=== PATIENT | male | born 1965 | race Caucasian/White ===

== ENCOUNTER 2019-10-10 07:59 | Outpatient (CLI) | payer OTHER, SELFPAY ==
--- NOTE | ~2019-10-10 | CT_ITS ---
EXAMINATION: CT abdomen pelvis w con DATE: 10/10/2019 08:45 INDICATION: Prostate cancer TECHNIQUE: Computed tomography (CT) of the abdomen and pelvis was performed with 100 mL Omnipaque-350 intravenous contrast. Automated exposure control and iterative reconstruction technique were employe d. The dose-length product was 917.29 mGy-cm. COMPARISON: None FINDINGS: Dependent atelectasis in the bilateral lower lobes. Heart size is normal. No pericardial or pleural e ffusion. 1.3 cm left hepatic cyst. Liver, gallbladder, spleen, pancreas and bilateral adrenal glands are normal. Bilateral nonobstructing renal stones, the largest stone/conglomeration of stones measuri ng 8 mm in maximal length and an upper pole calyx of the left kidney. Couple relatively hypodense les ions in the left kidney, the largest measuring 1.5 cm with slightly higher than simple fluid attenuat ion which remains indeterminate but most likely a proteinaceous/hemorrhagic cyst. Bowels including th e appendix are normal. Bladder is normal. Prostatomegaly. No free intraperitoneal gas or fluid. No pa thologically enlarged abdominal or pelvic lymphadenopathy. Mild scattered degenerative skeletal summers es. There are few tiny dense sclerotic bone islands at the bilateral femoral heads. No suspicious lyt ic or blastic bone lesions identified. IMPRESSION: 1. Prostatomegaly in patient with reported prostate cancer. No evident metastatic disease. 2. Bilateral nonobstructing nephrolithiasis. 3. Indeterminate 1.5 cm relatively hypodense lesion at the left kidney with slightly higher than simp le fluid attenuation statistically most likely to represent a proteinaceous/hemorrhagic cyst. Conside r follow-up pre and postcontrast MRI or CT. Reviewed, dictated and finalized at location A. IMPRESSION: 1. Prostatomegaly in patient with reported prostate cancer. No evident metastat ic disease. 2. Bilateral nonobstructing nephrolithiasis. 3. Indeterminate 1.5 cm relatively hypodense lesion at the left kidney with sli ghtly higher than simple fluid attenuation statistically most likely to represe nt a proteinaceous/hemorrhagic cyst. Consider follow-up pre and postcontrast MR I or CT.
--- NOTE | ~2019-10-10 | US_ITS ---
EXAMINATION: US scrotum doppler DATE: 10/10/2019 09:00 INDICATION: Orchalgia TECHNIQUE: Testicular sonogram utilizing grayscale and Doppler COMPARISON: None. FINDINGS: The right testis measures 4.2 x 2.3 x 3.6 cm. The left testis measures 4.3 x 2.4 x 3.1 cm. Symmetric normal grayscale appearance to both testes. There is normal vascular flow to both testes. The right e pididymis is normal with normal vascular flow. The left epididymis is normal with normal vascular adriana w. There is no varicocele or hydrocele. IMPRESSION: 1. Normal scrotal ultrasound. Reviewed, dictated and finalized at location A.
[2019-10-10 08:28] LABS: Estimated Glomerular Filt Rate > 60
== END 2019-10-10 08:00 | disposition home or self-care (01) ==
LOC: ANHIMG 08:02
PROVIDERS: PCP Family Medicine; Visit Provider Urology
DX: C61 Malignant neoplasm of prostate (principal); N50.819 Testicular pain, unspecified; N40.0 Benign prostatic hyperplasia without lower urinary tract symptoms; N20.0 Calculus of kidney
CPT/HCPCS: 36415; 74177; 76870; 93976; Q9967

== ENCOUNTER 2019-10-16 11:48 | Outpatient (CLI) | payer OTHER, SELFPAY ==
--- NOTE | 2019-10-16 12:36 | ECG_ITS ---
Measurements Intervals [place] Rate: 69 P: 16 WA: 173 QRS: -27 QRSD: 90 T: -8 QT: 356 QTc: 383 Interpretive Statements SINUS RHYTHM DELAYED PRECORDIAL R/S TRANSITION BORDERLINE T WAVE ABNORMALITY- INFERIOR LEADS BORDERLINE ECG Electronically Signed On 10-16-2019 13:17:52 CDT by Brennan Mosher D.O.
[2019-10-16 12:50] LABS: Basophils Absolute Auto 0.1 K/mm3 (0.0-0.1); Basophils Percent Auto 0.8 % (0.2-1.2); Eosinophils Absolute Auto 0.2 K/mm3 (0-0.3); Eosinophils Percent Auto 3.7 % (0-4.4); Hematocrit 46.4 % (42.0-52.0); Hemoglobin 16.2 g/dL (14.0-18.0); Immature Granulocyte Absolute 0.03 K/mm3 (0.00-0.031); Immature Granulocyte Percent A 0.5 % (0-0.5); Mean Corpuscular HGB Conc 34.9 g/dl (32-36); Mean Corpuscular Hemoglobin 32.3 pg (26-34); Mean Corpuscular Volume 92.6 fl (80-100); Mean Platelet Volume 10.4 fl (7.4-10.4); Monocytes Absolute Auto 0.5 K/mm3 (0.1-0.6); Monocytes Percent Auto 7.9 % (2.6-8.5); Neutrophils Absolute Auto 3.8 K/mm3 (1.3-6.7); Neutrophils Percent Auto 59.1 % (45.5-73.1); Platelet Count Result 185 k/mm3 (150-375); Red Blood Count 5.01 M/mm3 (4.6-6.20); White Blood Count 6.4 K/mm3 (4.5-10.0)
[2019-10-16 12:59] LABS: INR 1.2; Prothrombin Time 14.6 Seconds (11.1-14.7)
[2019-10-16 13:00] LABS: Partial Thromboplastin Time 29.7 SECONDS (22.3-36.8)
[2019-10-16 13:02] LABS: Alanine Aminotransferase 58 U/L (4-50); Albumin Level 4.4 g/dL (3.5-5.1); Alkaline Phosphatase 59 U/L (38-126); Anion Gap 7 mmol/L (8-16); Aspartate Amino Transferase 35 U/L (17-59); Bilirubin,Total 0.7 mg/dL (0.2-1.3); Blood Urea Nitrogen 11 mg/dL (9-20); Calcium 8.9 mg/dL (8.4-10.2); Carbon Dioxide 28 mmol/L (22-30); Chloride 103 mmol/L (98-107); Estimated Glomerular Filt Rate > 60; Glucose 125 mg/dL (75-110); Potassium 3.8 mmol/L (3.4-5.0); Sodium 138 mmol/L (137-145)
== END 2019-10-16 11:49 | disposition home or self-care (01) ==
PROVIDERS: PCP Family Medicine; Visit Provider Urology
DX: C61 Malignant neoplasm of prostate (principal); I10 Essential (primary) hypertension; R94.31 Abnormal electrocardiogram [ECG] [EKG]
CPT/HCPCS: 36415; 80053; 85025; 85610; 85730; 87086; 93005

== ENCOUNTER 2019-10-25 01:45 | Outpatient (CLI) | payer OTHER, SELFPAY ==
[2019-10-25 19:29] LABS: SARS-CoV-2 RNA PCR Negative
== END 2019-10-25 01:46 | disposition home or self-care (01) ==
LOC: ANHCOVIDDT 01:45
PROVIDERS: PCP Family Medicine; Visit Provider Urology
DX: Z01.812 Encounter for preprocedural laboratory examination (principal); Z11.59 Encounter for screening for other viral diseases
CPT/HCPCS: 87635; C9803; U0003

== ENCOUNTER 2019-10-29 15:46 | Observation (INO) | payer OTHER, SELFPAY ==
[2019-10-16 12:32] VITALS: BP 147/93; PULSE 82; RESP 16; TEMP 37; O2SAT 98; BMI 30.4
--- NOTE | 2019-10-27 09:09 | WPDANESEPP ---
Anes - Eval Pre Procedure Procedure: Operation Date: 10/28/19 07:30 Proposed Procedures p Robotic Assisted Nerve Sparing Prostatectomy - Ketan Christensen MD Date/Time: 10/27/19 09:09 Pre Op Diagnosis: prostate CA Patient Data Age: 54 Gender: M Height: 1.85 m Weight: 104.8 kg Last Vital Signs Temp 37.0 C 10/16/19 12:32 Pulse 82 10/16/19 12:32 Resp 16 10/16/19 12:32 BP 147/93 H 10/16/19 12:32 Pulse Ox 98 10/16/19 12:32 Allergies Allergy/AdvReac Type Severity Reaction Status Date / Time No Known Allergies Allergy Unverified 10/16/19 11:55 Home Medications Medication Instructions Recorded Confirmed Type aspirin 325 mg tablet 325 mg PO DAILY 05/08/19 10/16/19 History famotidine 10 mg tablet 10 mg PO DAILY 05/08/19 10/16/19 History fluticasone propionate 50 1 spray NASAL PRN PRN 05/08/19 10/16/19 History mcg/actuation nasal spray,suspension loratadine 10 mg tablet 10 mg PO DAILY PRN 05/08/19 10/16/19 History multivitamin,wv-ubfn-[id number] 1 tablet PO DAILY 05/08/19 10/16/19 History amlodipine 10 mg tablet 10 mg PO DAILY #30 tablet 10/17/19 Rx Patient hx anesthesia problems: none Family hx anesthesia problems: none PMFSH Past Medical History Medical History Actinic keratosis Basal cell carcinoma Colon cancer screening Elevated PSA, less than 10 ng/ml Encounter for prostate cancer screening Encounter for wellness examination in adult Essential (primary) hypertension GERD (gastroesophageal reflux disease) GERD (gastroesophageal reflux disease) Hypertension Prostate cancer Seasonal allergic rhinitis Ureteral stone Surgical History Surgical History H/O vasectomy (~2014) H/O wisdom tooth extraction (~1979) History of excision of pilonidal cyst (~1987) Family History Family History Mother Ovarian cancer Father Coronary artery disease Osteoarthritis Sibling Hypertension Social History Social History Smoking status: Never smoker Alcohol intake: never Substance use: never Substance use type: does not use Exam Day of Procedure 10/27/19 09:09
[2019-10-28] VITALS (15 sets, daily range): BP systolic 101–168; BP diastolic 68–87; PULSE 81–101; RESP 11–24; TEMP 36.3–36.8; O2SAT 95–100
[2019-10-28] MEDS: LACTATED RINGERS 1,000 ML 30 ML IV CONT ×2 (06:45→12:55)
--- NOTE | 2019-10-28 07:00 | WPDHPUPDATE1 ---
History and Physical Update Update Date/Time: 10/28/19 07:00 History and Physical has been reviewed, including an updated exam of the patient. There are NO changes in the patient's condition. Risks, benefits, and alternatives have been discussed and questions answered. Patient agrees to proceed with procedure.
--- NOTE | 2019-10-28 07:01 | WPDANESEPPF ---
Anes - Initial Pre Proc Eval Procedure: Operation Date: 10/28/19 07:30 Proposed Procedures p Robotic Assisted Nerve Sparing Prostatectomy - Ketan Christensen MD Date/Time: 10/28/19 07:01 Surgeon: Ketan Christensen MD Pre Op Diagnosis: prostate CA Patient Data Age: 54 Gender: M Height: 6 ft 1 in Weight: 99.3 kg Last Vital Signs Temp 36.7 C 10/28/19 06:51 Pulse 81 10/28/19 06:51 Resp 16 10/28/19 06:51 BP 131/79 10/28/19 06:51 Pulse Ox 98 10/28/19 06:51 Allergies Allergy/AdvReac Type Severity Reaction Status Date / Time No Known Allergies Allergy Verified 10/28/19 06:13 Home Medications Medication Instructions Recorded Confirmed Type aspirin 325 mg tablet 325 mg PO DAILY 05/08/19 10/28/19 History famotidine 10 mg tablet 10 mg PO DAILY 05/08/19 10/28/19 History fluticasone propionate 50 1 spray NASAL PRN PRN 05/08/19 10/28/19 History mcg/actuation nasal spray,suspension loratadine 10 mg tablet 10 mg PO DAILY PRN 05/08/19 10/28/19 History multivitamin,ca-nxgk-iiqgljxk 1 tablet PO DAILY 05/08/19 10/28/19 History amlodipine 10 mg tablet 10 mg PO DAILY #30 tablet 10/17/19 10/28/19 Rx Patient hx anesthesia problems: none Family hx anesthesia problems: none PMFSH Past Medical History Medical History Actinic keratosis Basal cell carcinoma Colon cancer screening Elevated PSA, less than 10 ng/ml Encounter for prostate cancer screening Encounter for wellness examination in adult Essential (primary) hypertension GERD (gastroesophageal reflux disease) GERD (gastroesophageal reflux disease) Hypertension Prostate cancer Seasonal allergic rhinitis Ureteral stone Surgical History Surgical History H/O vasectomy (~2014) H/O wisdom tooth extraction (~1979) History of excision of pilonidal cyst (~1987) Family History Family History Mother Ovarian cancer Father Coronary artery disease Osteoarthritis Sibling Hypertension Social History Social History Smoking status: Never smoker Alcohol intake: never Substance use: never Substance use type: does not use Living arrangements: with family Anes - Eval Final PreProcedure Day of Procedure 10/28/19 07:01 Patient weight: normal Heart: regular rate and rhythm Lungs: clear to auscultation Airway: Mallampati scale class II Neurological: alert and oriented Last oral intake: >/= 8 hours ASA classification: II Emergent: no Anesthetic plan: proceed Anesthesia type and monitoring: general ETT and standard monitoring Informed Consent: The patient's anesthetic plan and its attendant risks and benefits were discussed with the patient/family/POA. Questions were solicited and answers provided to the satisfaction of the patient/family/POA.
[2019-10-28] MEDS: ceFAZolin 2 GM/D5W 50 ML 2 GM/50 ML BAG IVPB (07:23)
[2019-10-28] MEDS: ceFAZolin SODIUM 1 GM VIAL IV PUSH (11:26)
--- NOTE | 2019-10-28 12:37 | P.OP_ITS ---
Procedure Note - Detailed Date of procedure: 10/28/19 Pre-op diagnosis: prostate CA Post-op diagnosis: same Procedure performed: Robotic assisted nerve-sparing prostatectomy with bilateral pelvic lymphadenectomy Description of procedure: patient is taken the operative suite and correctly identified. Once anesthesia was obtained he was placed a low lying dorsal lithotomy position and prepped and draped usual sterile fashion. Eighteen [place] Akhtar was placed with 15 cc in the balloon. a supraumbilical incision was made and carried down to the rectus fascia. Veress needle was inserted in the abdomen was insufflated to 15 mmHg pressure. The camera port trocar was placed under direct vision. Working ports were then placed in the appropriate locations under direct vision. Patient was then placed in steep Trendelenburg position. The robot was then attached to the instruments. A posterior approach was then performed by incising the peritoneum posteriorly. Seminal vesicles were dissected out in their entirety. The vas was transected. Space between the prostate and rectum was then developed. Bladder was taken down in the standard fashion. Space of Retzius was developed bilaterally. Puboprostatic ligaments were transected. The superficial vein was fulgurated. Dorsal venous complex was isolated with an 0 Vicryl secured to the pubic bone. Bladder neck was then opened in a bladder neck sparing procedure was performed. Posterior bladder neck was also transected. The space that was developed previously was entered and the seminal vesicles and vas were visualized. Bilateral nerve-sparing was performed the standard fashion. Pedicles were isolated and hemoclipped. Prostate was elevated off the rectum without difficulty. Dorsal venous complex was then transected. The urethra was also transected. Bilateral pelvic lymphadenectomies were then performed with the borders being the Nikolas's ligament distally bifurcation of vessel proximally external iliac vein and obturator nerve. The right packet had a clip placed on it for identification. Surgicel was then placed in the obturator fossa as as well as over the nerve bundles. We then reapproximated the posterior shelf using a Jose stitch. The urethral stump was then anastomosed to the bladder neck using the V lock suture in a running fashion. There was good approximation of mucosa to mucosa. It was water tight. Sixteen [place] Akhtar was then placed with 10 cc in the balloon. The bladder was filled to 200 cc without any evidence of extravasation. Pressure in the abdomen was then taken down to 6 mmHg pressure. There was just a slight ooze at the dorsal venous complex area. We then over sewed this area can using V lock suture. All lap, needle count sponge counts were correct. The specimen as well as the lymph node packets were placed in the Endo-Catch bag. This was then brought out through the midline incision. Rectus fascia was closed using 0 Vicryl in a running fashion. Subcuticular stitches were then placed. We anesthetized the port sites using 1% lidocaine. Patient tolerated procedure well without complications and was taken recovery room stable condition. Anesthesia: GETA Surgeon: Ketan Christnesen MD Estimated blood loss (mL): 200 Drains: Yes Packing: No Pathology: yes Complications: No immediate complications Condition: stable Disposition: PACU
[2019-10-28] MEDS: HYOSCYAMINE SULFATE 0.125 MG TABLET PO (13:40)
[2019-10-28] MEDS: KETOROLAC 30 MG/ML VIAL (*BKC) IV PUSH ×2 (15:39→21:42)
[2019-10-28] MEDS: LACTATED RINGERS 1,000 ML 125 ML IV CONT ×2 (15:40→23:37)
[2019-10-28] MEDS: DOCUSATE SODIUM 100 MG CAPSULE PO (17:18)
[2019-10-29 00:59] VITALS: BP 105/66; PULSE 75; RESP 16; TEMP 36.3; O2SAT 96
[2019-10-29] MEDS: KETOROLAC 30 MG/ML VIAL (*BKC) IV PUSH (04:54)
[2019-10-29 04:59] VITALS: BP 117/67; PULSE 84; RESP 16; TEMP 36.7; O2SAT 96
[2019-10-29 05:45] LABS: Hematocrit 36.7 % (42.0-52.0)
[2019-10-29 06:07] LABS: Anion Gap 6 mmol/L (8-16); Blood Urea Nitrogen 13 mg/dL (9-20); Calcium 8.2 mg/dL (8.4-10.2); Carbon Dioxide 25 mmol/L (22-30); Chloride 105 mmol/L (98-107); Estimated CRCL calculation 115 ml/min; Estimated Glomerular Filt Rate > 60; Glucose 113 mg/dL (75-110); Potassium 3.8 mmol/L (3.4-5.0); Sodium 136 mmol/L (137-145)
[2019-10-29] MEDS: LACTATED RINGERS 1,000 ML 125 ML IV CONT (07:28)
[2019-10-29] MEDS: HYOSCYAMINE SULFATE 0.125 MG TABLET SUBLINGUAL (07:29)
--- NOTE | 2019-10-29 08:00 | WPDUROPN2 ---
Progress Note: A&P Assessment and Plan (1) Prostate cancer: Code(s): C61 - Malignant neoplasm of prostate Status: Acute Assessment and Plan: postop day 1. Robotic assisted nerve-sparing prostatectomy bilateral pelvic lymphadenectomy. - Increase ambulation - monitor CHARLIE output this morning. - possible discharge home later today. - Hold Toradol, start Tylenol as needed, Hep-Lock IV, remove Ricardo hose. Subjective Subjective Date/Time Seen: 10/29/19 08:00 Post Op day: 1 (Robotic assisted nerve-sparing prostatectomy with bilateral pelvic lymphadenectomy) Principal diagnosis: adenocarcinoma of prostate Interval history: Doing well overall. Has some discomfort from the CHARLIE site drained. Hemodynamically stable overnight Review of Systems Review of Systems: All systems reviewed & are unremarkable except as noted in HPI and below Exam Const: General: comfortable Eyes: General: appearance normal, both eyes and all related structures Resp: Effort & Inspection: normal respiratory effort GI: Inspection: non-distended Urinary Catheter: Urinary Catheter: patent and draining and urine clear Skin: General skin exam: normal color Neuro: Speech: normal speech Objective Data Vital Signs Vital Signs: Vital Signs - 24 hr 10/28/19 12:55 10/28/19 13:10 10/28/19 13:25 Temperature 36.8 C Pulse Rate 95 84 82 Respiratory Rate 15 11 L 24 H Blood Pressure 101/86 116/75 122/81 Pulse Oximetry 99 100 95 10/28/19 13:40 10/28/19 13:55 10/28/19 14:10 Temperature Pulse Rate 91 96 95 Respiratory Rate 13 16 20 Blood Pressure 124/79 122/80 125/80 Pulse Oximetry 96 96 100 10/28/19 14:25 10/28/19 14:40 10/28/19 14:55 Temperature Pulse Rate 95 88 93 Respiratory Rate 13 20 15 Blood Pressure 130/85 127/87 121/81 Pulse Oximetry 100 100 98 10/28/19 15:25 10/28/19 15:40 10/28/19 16:10 Temperature 36.3 C L 36.4 C L 36.4 C L Pulse Rate 86 100 101 H Respiratory Rate 16 18 18 Blood Pressure 152/81 H 159/85 H 168/87 H Pulse Oximetry 99 98 97 10/28/19 17:10 10/28/19 20:59 10/29/19 00:59 Temperature 36.5 C 36.8 C 36.3 C L Pulse Rate 92 84 75 Respiratory Rate 18 18 16 Blood Pressure 108/68 111/74 105/66 Pulse Oximetry 95 98 96 10/29/19 04:59 Temperature 36.7 C Pulse Rate 84 Respiratory Rate 16 Blood Pressure 117/67 Pulse Oximetry 96 Intake/Output Intake/Output: Intake & Output 10/26/19 10/27/19 10/28/19 10/29/19 23:59 23:59 23:59 23:59 Intake Total 2510 92995 Output Total 518 4540 Balance 1992 6460 Meds/Results Medications: Active Medications Generic Name Dose Route Start Last Admin Trade Name Freq PRN Reason Stop Dose Admin Hydrocodone Bitart/Acetaminophen 1 tab 10/28/19 15:14 10/29/19 06:39 [place] 5-325 Mg PO 1 tab Q6H PRN Administration Pain Rated 1-3 Hydrocodone Bitart/Acetaminophen 2 tab 10/28/19 15:14 [place] 5-325 Mg PO Q6H PRN Pain Rated 4-6 Amlodipine Besylate 10 mg 10/29/19 09:00 Norvasc PO DAILY [facility] Docusate Sodium 100 mg 10/28/19 17:00 10/28/19 17:18 Colace Capsule PO 100 mg BID BASSAM Administration Famotidine 10 mg 10/29/19 09:00 Pepcid Ac PO DAILY [facility] Hyoscyamine 0.125 mg 10/28/19 15:14 10/29/19 07:29 Levsin Tablet SUBLINGUAL 0.125 mg Q4H PRN Administration Bladder Spasm Lactated Ringer's 1,000 mls @ 125 mls/hr 10/28/19 15:14 10/29/19 07:28 Lr - Lactated Ringers Iv IV CONT 125 mls/hr .Q8H BASSAM Administration Ketorolac Tromethamine 30 mg 10/28/19 15:14 10/29/19 04:54 Toradol Inj IV PUSH 10/29/19 15:15 30 mg Q6H PRN Administration Pain Rated 4-6 Levofloxacin 500 mg 10/29/19 09:00 Levaquin Tab PO DAILY BASSAM Morphine Sulfate 1 - 2 mg 10/28/19 15:14 Morphine Sulfate Inj IV PUSH Q2H PRN Pain Rated 7-10 Naloxone HCl 0.1 mg 10/28/19 15:14 Narcan IV PUSH Q2M PRN Opiate Reversal
[2019-10-29] MEDS: DOCUSATE SODIUM 100 MG CAPSULE PO ×2 (08:17→17:56)
[2019-10-29] MEDS: FAMOTIDINE 10 MG TABLET PO (08:17)
[2019-10-29 10:00] VITALS: BP 116/75; PULSE 80; RESP 18; TEMP 36.4; O2SAT 99
[2019-10-29] MEDS: ACETAMINOPHEN 500 MG TABLET PO ×3 (10:28→18:57)
[2019-10-29 14:00] VITALS: BP 132/85; PULSE 73; RESP 16; TEMP 36.4; O2SAT 98
[2019-10-29 17:51] VITALS: BP 124/77; PULSE 80; RESP 16; TEMP 36.4; O2SAT 99
[2019-10-29 22:00] VITALS: BP 133/81; PULSE 61; RESP 21; TEMP 36.7; O2SAT 100
[2019-10-30 02:00] VITALS: BP 102/68; PULSE 71; RESP 18; TEMP 36.9; O2SAT 96
[2019-10-30] MEDS: ACETAMINOPHEN 500 MG TABLET PO ×2 (03:46→08:57)
[2019-10-30 06:00] VITALS: BP 110/71; PULSE 72; RESP 20; TEMP 36.8; O2SAT 98
--- NOTE | 2019-10-30 07:51 | WPDUROPN2 ---
Progress Note: A&P Assessment and Plan (1) Prostate cancer: Code(s): C61 - Malignant neoplasm of prostate Status: Acute Assessment and Plan: Postop day 2. Robotic assisted nerve-sparing prostatectomy with bilateral pelvic lymphadenectomy. -CHARLIE was removed today. - Will discharge home with Akhtar catheter. Luis has a catheter cystogram scheduled for next week. Pathology is pending at time of discharge. Subjective Subjective Date/Time Seen: 10/30/19 07:51 Post Op day: 2 Principal diagnosis: Adenocarcinoma prostate Interval history: Luis is feeling much better today. Does have some right shoulder discomfort intermittently and this may be secondary to the abdominal insufflation and possibly even positioning. Ambulating without difficulty. CHARLIE has decreased its output. Review of Systems Review of Systems: All systems reviewed & are unremarkable except as noted in HPI and below Exam Const: General: comfortable Resp: Effort & Inspection: normal respiratory effort Cardio: Rhythm: regular rhythm Urinary Catheter: Urinary Catheter: patent and draining and urine clear Neuro: Speech: normal speech Objective Data Vital Signs Vital Signs: Vital Signs - 24 hr 10/29/19 10:00 10/29/19 14:00 10/29/19 17:51 Temperature 36.4 C 36.4 C L 36.4 C Pulse Rate 80 73 80 Respiratory Rate 18 16 16 Blood Pressure 116/75 132/85 124/77 Pulse Oximetry 99 98 99 10/29/19 22:00 10/30/19 02:00 10/30/19 06:00 Temperature 36.7 C 36.9 C 36.8 C Pulse Rate 61 71 72 Respiratory Rate 21 H 18 20 Blood Pressure 133/81 102/68 110/71 Pulse Oximetry 100 96 98 Intake/Output Intake/Output: Intake & Output 10/27/19 10/28/19 10/29/19 10/30/19 23:59 23:59 23:59 23:59 Intake Total 2510 06490 1000 Output Total 144 4902 2030 Balance 1992 5172 -1031 Meds/Results Medications: Active Medications Generic Name Dose Route Start Last Admin Trade Name Freq PRN Reason Stop Dose Admin Acetaminophen 500 mg 10/29/19 08:02 10/30/19 03:46 Tylenol Tablet PO 500 mg Q4H PRN Administration Mild Pain (1-3) or Fever Hydrocodone Bitart/Acetaminophen 1 tab 10/28/19 15:14 10/29/19 20:37 [place] 5-325 Mg PO 1 tab Q6H PRN Administration Pain Rated 1-3 Hydrocodone Bitart/Acetaminophen 2 tab 10/28/19 15:14 [place] 5-325 Mg PO Q6H PRN Pain Rated 4-6 Amlodipine Besylate 10 mg 10/29/19 09:00 10/29/19 15:56 Norvasc PO Not Given DAILY [facility] Docusate Sodium 100 mg 10/28/19 17:00 10/29/19 17:56 Colace Capsule PO 100 mg BID BASSAM Administration Famotidine 10 mg 10/29/19 09:00 10/29/19 08:17 Pepcid Ac PO 10 mg DAILY BASSAM Administration Hyoscyamine 0.125 mg 10/28/19 15:14 10/29/19 07:29 Levsin Tablet SUBLINGUAL 0.125 mg Q4H PRN Administration Bladder Spasm Levofloxacin 500 mg 10/29/19 09:00 10/29/19 08:17 Levaquin Tab PO 500 mg DAILY BASSAM Administration Morphine Sulfate 1 - 2 mg 10/28/19 15:14 Morphine Sulfate Inj IV PUSH Q2H PRN Pain Rated 7-10 Naloxone HCl 0.1 mg 10/28/19 15:14 Narcan IV PUSH Q2M PRN Opiate Reversal Ondansetron HCl 4 mg 10/28/19 15:14 Zofran Inj IV PUSH Q6H PRN Nausea And Vomiting
--- NOTE | 2019-10-30 08:25 | PM.DS ---
DS: Admitting Diagnosis Admitting Diagnosis Admitting Diagnosis: prostate CA DS: Summary Time Spent with Patient Time attestation: POD #2 Robotic assisted nerve-sparing prostatectomy with bilateral pelvic lymphadenectomy, Patient tolerated procedure well was transferred to recovery in stable condition and to the floor for further observation. He has continued to recover well without difficulty. He will be discharged home today on all previous home medications, except ASA, which will be held. He may resume a regular diet, and activity as tolerated, no straining. Exam Resp: Effort & Inspection: normal respiratory effort Cardio: Rate: regular rate GI: Inspection: incision (all are well approximated, no drainage present, no edema or erythema) GI Palp: Yes Soft to palpation and Yes Tenderness to palpation present (GI) Urinary Catheter: Urinary Catheter: patent and draining and urine clear Extrem: General: no edema DS: Data Data Completed and Pending Pending studies at discharge: Pending at discharge 10/28/19 12:11 Surgical [PTH] Routine Surgical [PTH] Routine Discharge Plan Discharge Discharging Clinician: Ketan Christensen Patient Disposition: Home, Self-Care Activity: as tolerated Diet: regular Patient Instructions: Antibiotic Form, Pain Management (DC), Akhtar Catheter Placement and Care (DC), Reinier-Hernandez Drain Care (DC) Follow-up/Referrals: Kole Hayes MD [Primary Care Provider] - Discharge Medications: New tramadol 50 mg tablet 50 mg PO Q6H PRN (Reason: pain) Qty: 20 RF: 0 sulfamethoxazole-trimethoprim [Bactrim DS] 800-160 mg tablet 1 tablet PO DAILY Qty: 10 RF: 0 sulfamethoxazole-trimethoprim [Bactrim DS] 800-160 mg tablet 1 tablet PO DAILY Qty: 10 RF: 0 Continued famotidine [Pepcid AC] 10 mg tablet 10 mg PO DAILY RF: 0 loratadine [Claritin] 10 mg tablet 10 mg PO DAILY PRN (Reason: allergy symptoms) RF: 0 fluticasone propionate [Flonase Allergy Relief] 50 mcg/actuation spray,suspension 1 spray NASAL PRN PRN (Reason: Allergy Symptoms) RF: 0 amlodipine 10 mg tablet 10 mg PO DAILY Qty: 30 RF: 11 Held Complete Multivitamin Tablet 1 tablet PO DAILY RF: 0 Hold Instructions: Resume on 11/03/19. aspirin 325 mg tablet 325 mg PO DAILY RF: 0 Hold Instructions: Resume on 11/03/19. Date of admission: 10/29/19 15:46 Primary Care Provider: Kole Hayes Admitting Provider: Ketan Christensen Attending physician on admission: Ketan Christensen
[2019-10-30] MEDS: DOCUSATE SODIUM 100 MG CAPSULE PO (08:56)
[2019-10-30] MEDS: FAMOTIDINE 10 MG TABLET PO (08:56)
== END 2019-10-30 10:50 | disposition home or self-care (01) ==
LOC: ANHSURGERY 16:10 → ANH2MED 16:10
PROVIDERS: Admitting Provider Urology; PCP Family Medicine; Visit Provider Urology
PROC: 0VT04ZZ Resection of Prostate, Percutaneous Endoscopic Approach (ICD-10-PCS; CPT 55867; principal; 2019-10-28 07:30)
DX: C61 Malignant neoplasm of prostate (principal); I10 Essential (primary) hypertension; K21.9 Gastro-esophageal reflux disease without esophagitis; Z79.82 Long term (current) use of aspirin
CPT/HCPCS: 55866; 38571; S2900; 36415; 80048; 85014; 85018; 88305; 88307; A9270; G0378; J0690; J1100; J1170; J1885; J2250; J2405; J2704; J2710; J3010; J7030; J7120; Q9968

== ENCOUNTER 2019-11-05 08:53 | Outpatient (CLI) | payer OTHER, SELFPAY ==
--- NOTE | ~2019-11-05 | XR_ITS ---
XR cystogram DATE: 11/05/2019 09:29 INDICATION: Postoperative examination; Prostate cancer TECHNIQUE: Poured Pipe Maker KUB. Subsequent fluoroscopy and spot images of the urinary bladder during retrograde filling of the urinary bladder by gravity through an existing Akhtar catheter. Postevacuation KUB COMPARISON: None FINDINGS: There is no filling defect of the urinary bladder other than the Akhtar catheter. There is n o extravasation of contrast material from the bladder lumen. No vesicoureteral reflux. IMPRESSION: Normal postoperative urinary bladder Reviewed, dictated and finalized at Location [facility]. Reviewed, dictated and finalized at location A.
== END 2019-11-05 08:54 | disposition home or self-care (01) ==
LOC: ANHIMG 08:54
PROVIDERS: PCP Family Medicine; Visit Provider Urology
DX: C61 Malignant neoplasm of prostate (principal)
CPT/HCPCS: 51600; 74430; Q9967

== ENCOUNTER → 2021-12-08 16:50 | Outpatient (CLI) | payer OTHER, SELFPAY ==
--- NOTE | ~2021-12-08 | XR_ITS ---
EXAMINATION: XR chest 2V 12/08/2021 17:05 INDICATION: Cough. PROCEDURE: 2 view chest COMPARISON: 01/01/2019 FINDINGS: The lungs are clear. The cardiomediastinal silhouette is within normal limits. There are no pleural effusions. There is no pneumothorax suspected. IMPRESSION: 1: NO ACUTE CARDIOPULMONARY DISEASE. Reviewed, dictated and finalized at location A.
== END ==
PROVIDERS: PCP Family Medicine; Visit Provider Family Medicine
DX: R05.9 Cough, unspecified (principal)
CPT/HCPCS: 71046

== ENCOUNTER 2022-11-03 03:20 | Day surgery (SDC) | payer OTHER, SELFPAY ==
[2022-10-23 15:01] VITALS: BMI 25.7
--- NOTE | 2022-11-02 14:17 | PM.HPGS ---
History of Present Illness History of Present Illness Consent: Risks, benefits, and alternatives have been discussed and questions answered. Patient agrees to proceed with procedure. Chief complaint: family hx colon polyps Narrative: Matthew Mitchell is a 57 year old male Referred for colon cancer screening. There is a family history of emilio Review of Systems Review of Systems: All systems reviewed & are unremarkable except as noted in HPI and below PMFSH Past Medical History Medical History Actinic keratosis Basal cell carcinoma BMI 29.0-29.9,adult BMI 30.0-30.9,adult Colon cancer screening Cough COVID-19 (11/27/21) Elevated PSA, less than 10 ng/ml Encounter for wellness examination in adult Essential (primary) hypertension Family history of familial adenomatous polyposis (~2022) sister with tubulovillous adenoma GERD (gastroesophageal reflux disease) GERD (gastroesophageal reflux disease) Mixed hyperlipidemia Total cholesterol 174, triglycerides 170, HDL 43, LDL 101 with ratio 4.0 on 06/08/2022. Obesity (BMI 30.0-34.9) Overweight (BMI 25.0-29.9) Post-surgical erectile dysfunction Prostate cancer Robotic assisted radical prostatectomy 10/27/2021. PSA less than 0.1 on 06/08/2022. Seasonal allergic rhinitis Ureteral stone Vitamin B12 deficiency (06/08/22) level low at 334 with goal greater than 400, folic acid 18.0, hemoglobin 15.7 on 06/08/2022. Surgical History Surgical History H/O vasectomy (~2014) H/O wisdom tooth extraction (~1979) History of excision of pilonidal cyst (~1987) Family History Family History Mother Ovarian cancer Father Coronary artery disease Osteoarthritis Sibling Hypertension Social History Social History Smoking status: Former smoker Tobacco type: cigarettes Additional smoking assessment comments: light smoker in the past Alcohol intake: former Alcohol use details: socially in the past, greater than 4 years ago Substance use: never Substance use type: does not use Lack of Transportation: No Lack of Food: Never True Current Housing: I Have Housing Concerned About Future Housing: No Difficulty Paying Gas/Electric Bills: No Difficulty Paying for Meds: No Currently Unemployed: No Education: Master's Degree or Higher Difficulty w/ Childcare or Family Care: No Living arrangements: with family Gender identity (if verbalized by the patient): Male Spiritual care concerns: Yes (no blood transfusions) Meds Home Medications and Allergies Home Medications Medication Instructions Recorded Confirmed Type famotidine 10 mg tablet (Pepcid AC) 10 mg PO DAILY 05/08/19 10/23/22 History fluticasone propionate 50 1 spray intranasal PRN PRN Allergy 05/08/19 10/23/22 History mcg/actuation nasal Symptoms spray,suspension (Flonase Allergy Relief) loratadine 10 mg tablet (Claritin) 10 mg PO DAILY PRN allergy symptoms 05/08/19 10/23/22 History albuterol sulfate 90 mcg/actuation 2 puff inhalation Q4H PRN 12/14/21 10/23/22 Rx aerosol inhaler shortness of breath or wheezing #6.7 grams cyanocobalamin (vitamin B-12) 1,000 mcg PO DAILY 06/15/22 10/23/22 History 1,000 mcg tablet amlodipine 5 mg tablet 2.5 mg PO DAILY #30 tabs 10/19/22 11/03/22 Rx aspirin 325 mg capsule 325 mg PO DAILY 10/23/22 10/23/22 History multivitamin with minerals-folic 1 tablet PO DAILY 10/23/22 10/23/22 History acid 0.4 mg tablet Allergies Allergy/AdvReac Type Severity Reaction Status Date / Time No Known Allergies Allergy Verified 11/03/22 11:38 Exam Resp: Auscultation: clear to auscultation bilaterally Cardio: Rate: regular rate Rhythm: regular rhythm GI: GI Palp: Yes Soft to palpation and No Tenderness to palpa
[2022-11-03 11:41] VITALS: BP 132/88; PULSE 75; RESP 20; TEMP 37; O2SAT 99
[2022-11-03] MEDS: LACTATED RINGERS 1,000 ML 150 ML IV CONT (11:52)
--- NOTE | 2022-11-03 12:07 | WPDANESEPPF ---
Anes - Initial Pre Proc Eval Procedure: Operation Date: 11/03/22 13:00 Proposed Procedures p Colonoscopy - Mendez Tolliver MD Date/Time: 11/03/22 12:07 Surgeon: Mendez Tolliver MD Pre Op Diagnosis: family hx colon polyps Patient Data Age: 57 Gender: M Height: 1.85 m Weight: 89.2 kg Last Vital Signs Temp 98.6 F 11/03/22 11:41 Pulse 75 11/03/22 11:41 Resp 20 11/03/22 11:41 BP 132/88 11/03/22 11:41 Pulse Ox 99 11/03/22 11:41 O2 Del Method Room Air 11/03/22 11:41 Allergies Allergy/AdvReac Type Severity Reaction Status Date / Time No Known Allergies Allergy Verified 11/03/22 11:38 Home Medications Medication Instructions Recorded Confirmed Type famotidine 10 mg tablet (Pepcid AC) 10 mg PO DAILY 05/08/19 10/23/22 History fluticasone propionate 50 1 spray intranasal PRN PRN Allergy 05/08/19 10/23/22 History mcg/actuation nasal Symptoms spray,suspension (Flonase Allergy Relief) loratadine 10 mg tablet (Claritin) 10 mg PO DAILY PRN allergy symptoms 05/08/19 10/23/22 History albuterol sulfate 90 mcg/actuation 2 puff inhalation Q4H PRN 12/14/21 10/23/22 Rx aerosol inhaler shortness of breath or wheezing #6.7 grams cyanocobalamin (vitamin B-12) 1,000 mcg PO DAILY 06/15/22 10/23/22 History 1,000 mcg tablet amlodipine 5 mg tablet 2.5 mg PO DAILY #30 tabs 10/19/22 11/03/22 Rx aspirin 325 mg capsule 325 mg PO DAILY 10/23/22 10/23/22 History multivitamin with minerals-folic 1 tablet PO DAILY 10/23/22 10/23/22 History acid 0.4 mg tablet Patient hx anesthesia problems: none Family hx anesthesia problems: none Results Review: All pre-operative results and documents have been reviewed as part of the pre-operative evaluation. [facility] Past Medical History Medical History (Updated 10/19/22 @ 15:14 by Kole Hayes MD) Actinic keratosis Basal cell carcinoma BMI 29.0-29.9,adult BMI 30.0-30.9,adult Colon cancer screening Cough COVID-19 (11/27/21) Elevated PSA, less than 10 ng/ml Encounter for wellness examination in adult Essential (primary) hypertension Family history of familial adenomatous polyposis (~2022) sister with tubulovillous adenoma GERD (gastroesophageal reflux disease) GERD (gastroesophageal reflux disease) Mixed hyperlipidemia Total cholesterol 174, triglycerides 170, HDL 43, LDL 101 with ratio 4.0 on 06/08/2022. Obesity (BMI 30.0-34.9) Overweight (BMI 25.0-29.9) Post-surgical erectile dysfunction Prostate cancer Robotic assisted radical prostatectomy 10/27/2021. PSA less than 0.1 on 06/08/2022. Seasonal allergic rhinitis Ureteral stone Vitamin B12 deficiency (06/08/22) level low at 334 with goal greater than 400, folic acid 18.0, hemoglobin 15.7 on 06/08/2022. Surgical History Surgical History H/O vasectomy (~2014) H/O wisdom tooth extraction (~1979) History of excision of pilonidal cyst (~1987) Family History Family History Mother Ovarian cancer Father Coronary artery disease Osteoarthritis Sibling Hypertension Social History Social History (Updated 06/15/22 @ 13:08 by Kayley Restrepo MA) Smoking status: Former smoker Tobacco type: cigarettes Additional smoking assessment comments: light smoker in the past Alcohol intake: former Alcohol use details: socially in the past, greater than 4 years ago Substance use: never Substance use type: does not use Lack of Transportation: No Lack of Food: Never True Current Housing: I Have Housing Concerned About Future Housing: No Difficulty Paying Gas/Electric Bills: No Difficulty Paying for Meds: No Currently Unemployed: No Education: Master's Degree or Higher Difficulty w/ Childcare or Family Care: No Living arrangements: with family Gender identity (if verbalized by the patient): Male Spiritual care kimberly
[2022-11-03 12:51] VITALS: BP 93/59; PULSE 69; RESP 26; O2SAT 96
[2022-11-03 13:01] VITALS: BP 91/57; PULSE 75; RESP 16; O2SAT 100
[2022-11-03 13:11] VITALS: BP 113/81; PULSE 71; RESP 23; O2SAT 99
== END 2022-11-03 13:15 | disposition home or self-care (01) ==
PROVIDERS: PCP Family Medicine; Visit Provider Internal Medicine Gastroenterology
PROC: 0DJD8ZZ Inspection of Lower Intestinal Tract, Via Natural or Artificial Opening Endoscopic (ICD-10-PCS; CPT 45378; principal; 2022-11-03 13:00)
DX: Z12.11 Encounter for screening for malignant neoplasm of colon (principal); Z83.71 Family history of colonic polyps; I10 Essential (primary) hypertension; K21.9 Gastro-esophageal reflux disease without esophagitis; E78.2 Mixed hyperlipidemia; E53.8 Deficiency of other specified B group vitamins; Z85.46 Personal history of malignant neoplasm of prostate; Z79.51 Long term (current) use of inhaled steroids; Z79.82 Long term (current) use of aspirin; Z87.891 Personal history of nicotine dependence
CPT/HCPCS: 45378; J2704; J7120

== ENCOUNTER 2024-01-20 13:17 | Emergency (ER) | payer BC, SELFPAY ==
--- NOTE | ~2024-01-20 | CT_ITS ---
EXAMINATION: CT brain wo con DATE: 01/20/2024 13:48 INDICATION: Head injury TECHNIQUE: Computed tomography (CT) of the head was performed without intravenous contrast. Sagittal and coronal reconstructions were performed. The mA was adjusted according to patient size. Iterative reconstruction technique was employed. The dose-length product was 681.00 mGy-cm. COMPARISON: None FINDINGS: No fracture. No acute intracranial hemorrhage, acute infarction or abnormal extra axial fluid collect ion. There is mild scattered white matter hypoattenuation consistent with chronic small vessel ischem ic disease. Ventricles are normal and symmetric. No mass/mass effect. The orbits, paranasal sinuses a nd right mastoid air cells are normal. The left mastoid is hypopneumatized. IMPRESSION: 1. Normal aging brain. No fracture or acute intracranial process. Reviewed, dictated and finalized at location A. [facility]
[2024-01-20 13:27] VITALS: BP 127/91; PULSE 63; RESP 16; O2SAT 99
--- NOTE | 2024-01-20 13:34 | ED.FALL ---
HPI - Fall General Chief Complaint: Fall Stated Complaint: fall Time Seen by Provider: 01/20/24 13:29 History of Present Illness HPI Narrative: 58-year-old male presenting with a facial injury. States he was putting something in the car when he struck his face with the trunk door. Sustained a laceration to the bridge of his nose. No loss of consciousness. His family was concerned as he is on aspirin. No further complaints. He is unsure on tetanus status. Related Data Home Medications Medication Instructions Recorded Confirmed famotidine 10 mg tablet (Pepcid AC) 10 mg PO DAILY 05/08/19 06/21/23 fluticasone propionate 50 1 spray intranasal PRN PRN Allergy 05/08/19 06/21/23 mcg/actuation nasal Symptoms spray,suspension (Flonase Allergy Relief) loratadine 10 mg tablet (Claritin) 10 mg PO DAILY PRN allergy symptoms 05/08/19 06/21/23 cyanocobalamin (vitamin B-12) 1,000 mcg PO DAILY 06/15/22 06/21/23 1,000 mcg tablet aspirin 325 mg capsule 325 mg PO DAILY 10/23/22 06/21/23 multivitamin with minerals-folic 1 tablet PO DAILY 10/23/22 06/21/23 acid 0.4 mg tablet Allergies Allergy/AdvReac Type Severity Reaction Status Date / Time No Known Allergies Allergy Verified 01/20/24 13:17 Review of Systems Review of Systems: All systems reviewed & are unremarkable except as noted in HPI and below PMFSH Past Medical History Medical History Actinic keratosis Basal cell carcinoma BMI 29.0-29.9,adult Colon cancer screening Cough COVID-19 (11/27/21) Elevated PSA, less than 10 ng/ml Encounter for wellness examination in adult Essential (primary) hypertension Family history of familial adenomatous polyposis (~2022) sister with tubulovillous adenoma. Normal colonoscopy 11/03/2022 with recheck in 5 years. GERD (gastroesophageal reflux disease) GERD (gastroesophageal reflux disease) Mixed hyperlipidemia Total cholesterol 174, triglycerides 170, HDL 43, LDL 101 with ratio 4.0 on 06/08/2022. Cholesterol 175, triglycerides 269, HDL 42, LDL 95 with ratio 4.2 on 06/22/2023. cholesterol 164, triglycerides 109, HDL 42, LDL 101 with ratio of 3.9 on 07/26/2023. Overweight (BMI 25.0-29.9) Renal insufficiency, mild (06/22/23) BUN 12, creatinine 1.5 with GFR 53 on 06/22/2023. BUN 10, creatinine 0.98 With GFR 88 on 07/26/2023. Seasonal allergic rhinitis Ureteral stone Vitamin B12 deficiency (06/08/22) level low at 334 with goal greater than 400, folic acid 18.0, hemoglobin 15.7 on 06/08/2022. Level greater than 2000 with hemoglobin 15.1 on 06/22/2023. Surgical History Surgical History H/O vasectomy (~2014) H/O wisdom tooth extraction (~1979) History of excision of pilonidal cyst (~1987) Prostate cancer Robotic assisted radical prostatectomy 10/27/2021. PSA less than 0.1 on 06/08/2022. Family History Family History Mother Ovarian cancer Father Coronary artery disease Osteoarthritis Sibling Hypertension Social History Social History Smoking status: Former smoker Tobacco type: cigarettes Additional smoking assessment comments: light smoker in the past Alcohol intake: former Alcohol use details: socially in the past, greater than 4 years ago Substance use: never Substance use type: does not use Lack of Transportation: No Lack of Food: Never True Current Housing: I Have Housing Concerned About Future Housing: No Difficulty Paying Gas/Electric Bills: No Difficulty Paying for Meds: No Currently Unemployed: No Education: Master's Degree or Higher Difficulty w/ Childcare or Family Care: No Living arrangements: with family Gender identity (if verbalized by the patient): Male Sexual Orientation (if Verbalized by the Patient): Straight or Heterosexual Spiritual care concerns: Yes (Evangelical) Agree to blood products: No Exam Narrative: GENERAL: Well-appearing, no acute distress, pleasant cooperative HEAD: Normocephalic, lac to nose EYES: PERRLA and EOMI. ENT: 1 cm superficial laceration upper nasal bridge NECK: Supple. CHEST: No respiratory distress. HEART: Regular rate and rhythm EXTREMITIES: Normal range of motion SKIN: Warm, dry, laceration as above NEURO: Alert and oriented x3. PSYCH: Normal mood and affect. Course Vital Signs Vital signs: Vital Signs Pulse Rate 63 01/20/24 13:27 Respiratory Rate 16 01/20/24 13:27 Blood Pressure 127/91 H 01/20/24 13:27 Pulse Oximetry 99 01/20/24 13:27 Oxygen Delivery Room Air 01/20/24 13:27 Pulse Rate 63 01/20/24 13:27 Respiratory Rate 16 01/20/24 13:27 Blood Pressure 127/91 H 01/20/24 13:27 Pulse Oximetry 99 01/20/24 13:27 Oxygen Delivery Room Air 01/20/24 13:27 MDM - Fall MDM Narrative Medical decision making narrative: 58-year-old male presenting with a facial laceration after striking himself in the face with his trunk door. Vitals are stable. Exam remarkable for the above. Plan for Tdap, CT brain. CT brain without acute abnormalities. Patient declines sutures for skin glue for his nasal laceration. He is open to Steri-Strips. Discussed appropriate supportive care and return precautions. Discharged in stable condition. Discharge Plan Discharge Clinical Impression: Closed head injury, Simple laceration of nose Patient Disposition: Home, Self-Care Condition: Stable Instructions: Antibiotic Form, Laceration (ED), Head Injury (ED) Additional Instructions: The CT today shows no acute abnormalities. Please use Tylenol for pain control. If your symptoms worsen or other concerning symptoms arise, please return to the ER. Prescriptions: No Action famotidine [Pepcid AC] 10 mg tablet 10 mg PO DAILY loratadine [Claritin] 10 mg tablet 10 mg PO DAILY PRN (Reason: allergy symptoms) fluticasone propionate [Flonase Allergy Relief] 50 mcg/actuation spray,suspension 1 spray NASAL PRN PRN (Reason: Allergy Symptoms) Rx Instructions: administer into each nostril cyanocobalamin (vitamin B-12) 1,000 mcg tablet 1,000 mcg PO DAILY multivit with min-folic acid 0.4 mg Tablet 1 tablet PO DAILY aspirin 325 mg Capsule 325 mg PO DAILY albuterol sulfate 90 mcg/actuation HFA aerosol inhaler 2 puff inhalation Q4H PRN (Reason: shortness of breath or wheezing) Qty: 6.7 1RF amlodipine 5 mg tablet 5 mg PO DAILY Qty: 90 3RF losartan-hydrochlorothiazide [Hyzaar] 100-12.5 mg tablet 1 tablet PO DAILY Qty: 90 3RF Follow-up/Referrals: Kole Hayes MD [Primary Care Provider] - Stand Alone Forms: Work/School Release IP
[2024-01-20] MEDS: TETANUS,DIPHTHERIA,AC PERTUSSIS ADULT (0.5 ML) BOOSTRIX IM (14:20)
[2024-01-20 14:22] VITALS: BP 145/88; PULSE 70; RESP 16
== END 2024-01-20 14:23 | disposition home or self-care (01) ==
PROVIDERS: Emergency Provider Emergency Medicine; PCP Family Medicine
DX: S01.21XA Laceration without foreign body of nose, initial encounter (principal); Z23 Encounter for immunization; E53.8 Deficiency of other specified B group vitamins; E78.2 Mixed hyperlipidemia; E66.3 Overweight; Z68.27 Body mass index [BMI] 27.0-27.9, adult; N28.9 Disorder of kidney and ureter, unspecified; K21.9 Gastro-esophageal reflux disease without esophagitis; Z85.46 Personal history of malignant neoplasm of prostate; Z87.442 Personal history of urinary calculi; Z85.828 Personal history of other malignant neoplasm of skin; Z86.16 Personal history of COVID-19; Z87.891 Personal history of nicotine dependence; Z90.49 Acquired absence of other specified parts of digestive tract; Z79.82 Long term (current) use of aspirin; Z79.899 Other long term (current) drug therapy; W22.8XXA Striking against or struck by other objects, initial encounter
CPT/HCPCS: 70450; 90471; 90715; 99284